=== PATIENT | male | born 1990 | race African-American/Black ===

== ENCOUNTER 2019-01-19 02:51 | Emergency (ER) | payer OTHER ==
[~2019-01-19] VITALS: Ht 177.8 cm; Wt 93.0 kg
[2019-01-19] MEDS ORDERED: NAPROXEN SODIU550 MG PO (08:07)
== END 2019-01-19 08:16 ==
LOC: ER 02:51
DX: D57.80 Other sickle-cell disorders without crisis (principal)